=== PATIENT | female | born 1970 | race Caucasian/White ===

== ENCOUNTER 2022-05-01 09:30 | Outpatient (RCR) | payer BC, SELFPAY ==
--- NOTE | 2022-02-15 11:13 | PTOPEVAL1 ---
Assessment and note entered by Braulio Velazco, PT Evaluation Information Assessment Status Evaluation Diagnosis Pain in L knee Onset 12/22/21 Subjective Information Patient reports she got a briefcase strap stuck on a handrail and to prevent falling backward she had to bend her knee in extreme position to prevent falling. Patient originally went to the doctor and received a steroid pack which she has not yet used. The patient reports her knee is feeling a lot better, but wants it to be checked out before she starts doing two of her favorite activities: rock climbing and snowboarding. Reported Pain Level Pain Score 1: Self Report Assessment PT Clinical Summary Candelario is a 51 year old female coming onto the clinic today with a diagnosis of pain in the L knee. The patient has slight decrease in range of motion and strength with pain compared to the R knee. The patient has negative results for Monse's, varus and valgus stress tests in neutral and at 30 degrees, apprehension and grind test. Patient given a home exercise program in order to work on quad strengthening along with knee stability. Will reassess in 2 weeks after patient has a chance to return to her more strenuous exercises and activities. Plan of Care Interventions Electrical Stimulation,Gait Training,Hot Pack/Cold Pack,Manual Therapy,Neuro Re-education,Patient/ Caregiver Education ,Therapeutic Activities, Therapeutic Exercise,Ultrasound PT Services Indicated Yes Treatment Frequency and home exercise for 2 weeks and then re-eval Duration These treatments will address the objective and functional deficits as defined above. The patient will be advanced safely and appropriately in order for the patient to progress towards his/her prior level of function. Additional exercises will be introduced and as well as a comprehensive home exercise program upon discharge, if needed, ?to ensure carryover of functional gains achieved in the clinic. This treatment plan has been reviewed and agreement upon by the patient.
--- NOTE | 2022-03-02 16:53 | PTOPREEVAL ---
Assessment and note entered by Braulio Velazco, PT Evaluation Information Assessment Status Re-evaluation Diagnosis L knee pain Onset 12/22/21 Subjective Information Patient reports she is still not feeling the stabbing pain that brought her originally to physical therapy, but still has pain and soreness after specifically skating at the skating rink, and hiking. She reports she has not been consistently doing her exercises, only about 6 times total since two weeks ago. These treatments will address the objective and functional deficits as defined above. The patient will be advanced safely and appropriately in order for the patient to progress towards his/her prior level of function. Additional exercises will be introduced and as well as a comprehensive home exercise program upon discharge, if needed, ?to ensure carryover of functional gains achieved in the clinic. This treatment plan has been reviewed and agreement upon by the patient.
--- NOTE | 2022-03-14 08:56 | PCPTNOTE ---
Patient did not show up in a timely matter for scheduled appointment this date. Pt arrived 25 minutes late to therapy session. Explained due to Pt being so late we would be unable to see her per our policy.
--- NOTE | 2022-04-11 15:28 | PCPTNOTE ---
Patient called & cancelled scheduled appointment this date due to locking her keys in her office
--- NOTE | 2022-05-01 13:28 | PTOPDC ---
Assessment and note entered by Braulio Velazco, PT Evaluation Information Assessment Status Discharge Diagnosis Pain in L knee Onset 12/22/21 Subjective Information Patient reports she is not having much pain in her knee, even going to a [employer] park over the weekend. She also has a snowboarding trip to [place] planned for in a few weeks. Patient thinks that the knee issues are from the L ankle. Does report occasional pain inside the knee Reported Pain Level Pain Score 0: Self Report Assessment PT Clinical Summary Candelario is a 51 year old female coming into the clinic for L knee pain. She had initial evaluation on 03/21/22 and attended 4 visits. She reports minimal pain in the knee even with more plyometric activities. Patient has increased range of motion and strength since initial evaluation. Discharged from physical therapy. Plan of Care PT Services Indicated No Treatment Frequency and discharge from skilled physical therapy. Duration
== END 2022-05-02 13:47 | disposition home or self-care (01) ==
LOC: ANHPT 09:30
PROVIDERS: PCP Family Medicine; Visit Provider Nurse Practitioner
DX: M25.562 Pain in left knee (principal)
CPT/HCPCS: 97110; 97112; 97161; 97530

== ENCOUNTER → 2023-01-24 13:48 | Outpatient (CLI) | payer BC, SELFPAY ==
--- NOTE | ~2023-01-24 | US_ITS ---
Abdominal Sonogram: Real-time sonographic imaging of the abdomen was performed. Clinical History: Abdominal pain Findings: The liver appears normal with no evidence of mass lesion or bile duct dilatation. Main por kaity vein demonstrates normal direction of flow. The spleen is normal in size without evidence of foca l lesion. The gallbladder is well distended, and appears normal with no evidence of gallstone or wal l thickening. The common bile duct measures 4 mm. The visualized pancreas, aorta, and IVC are unrema rkable. The right kidney measures 8.9 cm in length and the left kidney measures 9.9 cm. There is no hydronephrosis or renal calculus. Impression: Unremarkable abdominal ultrasound. Reviewed, dictated and finalized at location . Impression: Unremarkable abdominal ultrasound.
== END ==
PROVIDERS: Visit Provider Nurse Practitioner Family
DX: R10.9 Unspecified abdominal pain (principal)
CPT/HCPCS: 76700

== ENCOUNTER 2023-04-06 09:24 | Outpatient (CLI) | payer BC, SELFPAY ==
[2023-04-06 12:23] LABS: CRP < 0.5 mg/dL (<1.0)
[2023-04-06 12:52] LABS: Erythrocyte Sedimentation Rate 10 mm/hr (0-20)
[2023-04-12 06:59] LABS: Lupus dRVVT Screen 39 sec (<=45); PTT-LA Screen 40 sec (<=40)
== END 2023-04-06 09:25 | disposition home or self-care (01) ==
LOC: ANHGOSHLAB 09:25
PROVIDERS: Visit Provider Nurse Practitioner Family
DX: Z00.00 Encounter for general adult medical examination without abnormal findings (principal); R10.9 Unspecified abdominal pain; Z91.018 Allergy to other foods; Z91.09 Other allergy status, other than to drugs and biological substances; R10.819 Abdominal tenderness, unspecified site
CPT/HCPCS: 36415; 84443; 85613; 85652; 85730; 86038; 86140